=== PATIENT | female | born 1955 | race Caucasian/White ===

== ENCOUNTER 2017-04-05 13:30 | Day surgery (SDC) | payer OTHER ==
[2017-04-01 15:06] VITALS: BMI 29.2
--- NOTE | 2017-04-05 06:57 | HP ---
History & Physical Update - History History: No Change - Physical Physical: No Change - Assessment Assessment: No Change - Plan Plan: No Change
[2017-04-05] MEDS ORDERED: IBUPROFEN 400 MG TABLET (FP) PO PRN (13:50)
[2017-04-05] MEDS ORDERED: ACETAMINOPHEN 325 MG TABLET (FP) PO PRN (13:50)
--- NOTE | 2017-04-05 13:52 | OP ---
Operative Note - Note: Operative Date: 04/05/17 Operation: Leep COne Post-Operative Diagnosis: Same as Pre-op Surgeon: Mervat Prado Anesthesia: General Operative Report Dictated: Yes
[2017-04-05] MEDS ORDERED: FERRIC SUBSULFATE 500 ML BOTTLE TP ONE (14:42)
[2017-04-05] MEDS ORDERED: IODINE/POTASSIUM IODIDE 5%/10% 14 ML BOTTLE NR ONE (14:43)
[2017-04-05] MEDS ORDERED: oxyCODONE HCL 5 MG TABLET PO PRN (14:58)
[2017-04-05] MEDS ORDERED: ONDANSETRON 4 MG/2 ML VIAL IVPUSH PRN (14:58)
[2017-04-05] MEDS ORDERED: LACTATED RINGERS SOLUTION 1,000 ML IV SCH (15:00)
[2017-04-05 17:57] VITALS: TEMP 97.9
[2017-04-05 18:06] VITALS: BP 132/69; PULSE 77
--- NOTE | 2017-04-08 12:48 | PATH ---
Surgical Pathology Report Patient Name: FERNANDA MAY [facility]. Rec. #: [id number] /Age/Gender: 1955 (Age: 61) / F Account: [id number] Location: [facility] SURGICAL Taken: 04/05/2017 Received: 04/07/2017 Reported: 04/08/2017 Physicians: Mervat Prado M.D. Specimen(s) Received CERVICAL CONE Clinical History HPV Final Diagnosis CERVIX, LEEP CONE BIOPSY: CERVICAL SQUAMOUS AND ENDOCERVICAL WITH LOW GRADE SQUAMOUS INTRAEPITHELIAL LESION (CERVICAL INTRAEPITHELIAL NEOPLASIA 1/ ANITA 1), PARTIALLY DETACHED. SURGICAL RESECTION MARGINS: APPEAR NEGATIVE FOR DYSPLASIA IN THE ATTACHED FRAGMENTS (LIMITED ASSESSMENT DUE TO DETACHMENT OF DYSPLASTIC EPITHELIUM). TRANSFORMATION ZONE: FOCALLY PRESENT. Electronically Signed Jose Grady M.D. Gross Description Received in formalin labeled "cervical LEEP cone" are 2 escobar, irregular, unoriented portions of soft tissue, consistent with portions of cervix. The specimens measure 1.6 x 1.2 x 0.7 cm and 1.7 x 0.9 x 0.4 cm. The specimens are partially surfaced by a escobar-pink, shiny and glistening mucosa. The specimens are inked green, serially sectioned and entirely submitted in 4 cassettes. 04/07/201704/07/2017
--- NOTE | 2017-05-18 08:44 | OP ---
DATE OF OPERATION: 04/05/2017 PREOPERATIVE DIAGNOSIS: Human papillomavirus infection, cervical dysplasia. OPERATION: LEEP (loop electrosurgical excision procedure)/cone. POSTOPERATIVE DIAGNOSIS: Human papillomavirus infection, cervical dysplasia. SURGEON: Mervat Prado MD ANESTHESIA: General. ESTIMATED BLOOD LOSS: 5 mL. PROCEDURE: Patient was taken to the operating room, placed in dorsal lithotomy position, prepped and draped in the usual sterile fashion. A time-out was performed in accordance with hospital regulations. A speculum was placed in the vagina. Anterior lip of the cervix was grasped with a single-tooth tenaculum. Lugols was then placed on the cervix. Tenaculum was then removed, and a large LEEP/cone was then performed. Cautery was then used to cauterize the cervix. Monsel was then placed on the cervix. Hemostasis was achieved. Patient had tolerated the procedure well. All instruments were then removed. Patient was taken to the recovery room in stable condition. MERVAT PRADO M.D. [id number]
== END 2017-04-05 16:25 | disposition home or self-care (01) ==
LOC: JASU-SURG 13:30
PROVIDERS: ATTEND Obstetrics & Gynecology
PROC: 0UBC7ZX Excision of Cervix, Via Natural or Artificial Opening, Diagnostic (ICD-10-PCS; principal; 2017-04-05 11:00)
DX: A63.0 Anogenital (venereal) warts (principal); N87.0 Mild cervical dysplasia
CPT/HCPCS: 88307-TC; 94760